=== PATIENT | female | born 1955 | race American Indian/Alaskan Native ===

== ENCOUNTER 2017-12-15 11:17 | Emergency (ER) | payer OTHER ==
[2017-12-15] MEDS ORDERED: TORADOL IV ONE (12:10)
[2017-12-15] MEDS ORDERED: DILAUDID IV ONE ×2 (12:10→15:27)
[2017-12-15] MEDS ORDERED: NACL 0.9% 500 ML 500 ML IV ONE (12:10)
[2017-12-15] MEDS ORDERED: ZOFRAN IV ONE (12:10)
--- NOTE | 2017-12-15 12:12 | Emergency Department Report ---
Blank Doc - Documentation Documentation: Patient is a 62-year-old Female presenting with left-sided flank pain. Patient states this occurred acutely earlier this morning. Patient states pain is 8 out of 10 in severity. Patient has some mild nausea no vomiting. The patient has no history of pain of this caliber. Patient be moved to a treatment room to cliff chemistries CBC and urinalysis and the patient will also undergo a CT abdomen and pelvis without contrast to rule out obstructive uropathy. Ck
[2017-12-15 12:30] LABS: Basophils % (Auto) 0.7 % (0.0-1.8); Eosinophils # (Auto) 0.1 K/mm3 (0.0-0.4); Eosinophils % (Auto) 2.3 % (0.0-4.3); Hematocrit 43.9 % (30.3-42.9); Hemoglobin 14.8 gm/dl (10.1-14.3); Lymphocytes # (Auto) 0.7 K/mm3 (1.2-5.4); Mean Corpuscular HGB Conc 34 % (30-34); Mean Corpuscular Hemoglobin 29 pg (28-32); Mean Corpuscular Volume 85 fl (79-97); Monocytes # (Auto) 0.6 K/mm3 (0.0-0.8); Monocytes % (Auto) 10.9 % (0.0-7.3); Red Blood Count 5.16 M/mm3 (3.65-5.03); Red Cell Distribution Width 13.4 % (13.2-15.2)
[2017-12-15 12:34] LABS: Platelet Count 154 K/mm3 (140-440)
[2017-12-15 13:09] LABS: BUN/Creatinine Ratio 18; Blood Urea Nitrogen 14 mg/dL (7-17); Calcium 9.5 mg/dL (8.4-10.2); Hemolysis Index 16
[2017-12-15 13:25] LABS: Bacteria,Urine 1+ /HPF (Negative); Bilirubin,Urine NEG (Negative); Blood,Urine LG (Negative); Color,Urine Yellow (Yellow); Mucus,Urine FEW /HPF; Protein,Urine <15 mg/dL mg/dL (Negative); RBC,Urine > 182.0 /HPF (0.0-6.0); Urobilinogen,Urine < 2.0 mg/dL (<2.0)
--- NOTE | 2017-12-15 15:05 | Cat Scan Report ---
FINAL REPORT EXAM: CT ABDOMEN PELVIS WO CON HISTORY: L flank pain TECHNIQUE: CT examination of the ABDOMEN without IV contrast CT examination of the PELVIS without IV contrast PRIORS: None. FINDINGS: Linear scar versus atelectasis in both lung bases. Nonspecific slight consolidation in right lung base along the diaphragm posteriorly is associated with air bronchograms. This may be scar, atelectasis, or small region of pneumonitis. Degenerative change in the regional skeleton. No evidence of acute fracture. Normal noncontrast appearance of the liver, gallbladder, adrenals, pancreas, and spleen. Normal caliber abdominal aorta with slight calcified atherosclerotic plaque. Normal caliber IVC. Normal-appearing right kidney and visible right ureter. Asymmetrically larger left kidney may be from edema or inflammation. Slight perinephric fat stranding on the left. Moderate left hydronephrosis. Nonobstructing 3 mm left renal calculus. 5 x 7 mm calculus the in the left UPJ. Sagittal dimension is 8.6 mm. Normal visible left ureter distal to this. Slight fat stranding adjacent to the left renal pelvis. Small fat containing umbilical hernia. No retroperitoneal adenopathy. No evidence of mesenteric mass. Normal-appearing stomach and duodenum. No small bowel distention in the abdomen and pelvis. No pelvic free fluid. Normal-appearing urinary bladder, rectum, uterus, and adnexa. Normal-appearing sigmoid colon. No gross ascites, free air, or colonic distention. Normal-appearing cecum, terminal ileum, and appendix. IMPRESSION: 5 x 7 x 8.6 mm left UPJ calculus with moderate proximal left hydronephrosis. Nonspecific fat stranding adjacent to the left renal pelvis and left kidney may be postobstructive edema. Differential includes pyelonephritis 3 mm nonobstructing left renal calculus Nonspecific slight consolidation in the right lung base along the diaphragm with air bronchograms may be scar, atelectasis, or small region of pneumonitis Bibasilar linear scar versus atelectasis Small fat containing umbilical hernia
--- NOTE | 2017-12-15 15:22 | Emergency Department Report ---
ED Abdominal Pain HPI - General Chief Complaint: Abdominal Pain Stated Complaint: LEFT FLANK PAIN Time Seen by Provider: 12/15/17 12:06 Source: patient Mode of arrival: Ambulatory Limitations: No Limitations - History of Present Illness Initial Comments: Patient is a 62-year-old Female presenting with left-sided flank pain. Patient states this occurred acutely earlier this morning. Patient states pain is 8 out of 10 in severity. Patient has some mild nausea no vomiting. The patient has no history of pain of this caliber. MD Complaint: flank pain Location: LLQ Severity: severe Severity scale (0 -10): 9 Consistency: constant Worsens With: nothing Associated Symptoms: nausea. denies: vomiting, diarrhea, fever, chills, constipation, dysuria, hematemesis, hematochezia, melena, hematuria, anorexia, syncope - Related Data Previous Rx's Medication Instructions Recorded Last Taken Type Ibuprofen [Motrin] 800 mg PO Q8HR PRN #20 tablet 12/15/17 Unknown Rx Ondansetron [Zofran Odt] 4 mg PO Q8HR PRN #10 tab.rapdis 12/15/17 Unknown Rx Oxycodone HCl/Acetaminophen 1 each PO Q6HR PRN #15 tablet 12/15/17 Unknown Rx [Percocet 7.5/325 mg] Tamsulosin HCl [Flomax] 0.4 mg PO DAILY #7 cap.er.24h 12/15/17 Unknown Rx Allergies Allergy/AdvReac Type Severity Reaction Status Date / Time No Known Allergies Allergy Unverified 12/15/17 11:21 ED Review of Systems ROS: Stated complaint: LEFT FLANK PAIN Other details as noted in HPI Comment: All other systems reviewed and negative ED Past Medical Hx - Past Medical History Previous Medical History?: No - Surgical History Past Surgical History?: Yes Additional Surgical History: Right rotator cuff; right knee replace - Social History Smoking Status: Never Smoker Substance Use Type: None - Medications Home Medications: Home Medications Medication Instructions Recorded Confirmed Last Taken Type Ibuprofen [Motrin] 800 mg PO Q8HR PRN #20 tablet 12/15/17 Unknown Rx Ondansetron [Zofran Odt] 4 mg PO Q8HR PRN #10 tab.rapdis 12/15/17 Unknown Rx Oxycodone HCl/Acetaminophen 1 each PO Q6HR PRN #15 tablet 12/15/17 Unknown Rx [Percocet 7.5/325 mg] Tamsulosin HCl [Flomax] 0.4 mg PO DAILY #7 cap.er.24h 12/15/17 Unknown Rx ED Physical Exam - General Limitations: No Limitations General appearance: alert, in distress - Head Head exam: Present: atraumatic, normocephalic - Eye Eye exam: Present: normal appearance - ENT ENT exam: Present: mucous membranes moist - Neck Neck exam: Present: normal inspection - Respiratory Respiratory exam: Present: normal lung sounds bilaterally. Absent: respiratory distress, wheezes, rales, rhonchi - Cardiovascular Cardiovascular Exam: Present: regular rate, normal rhythm. Absent: systolic murmur, diastolic murmur, rubs, gallop - GI/Abdominal GI/Abdominal exam: Present: soft, normal bowel sounds. Absent: distended, tenderness, guarding, rebound - Extremities Exam Extremities exam: Present: normal inspection - Back Exam Back exam: Present: normal inspection, CVA tenderness (L) - Neurological Exam Neurological exam: Present: alert, oriented X3 - Psychiatric Psychiatric exam: Present: normal affect, normal mood - Skin Skin exam: Present: warm, dry, intact, normal color. Absent: rash ED Course Vital Signs 12/15/17 11:21 Temperature 98.2 F Pulse Rate 79 Respiratory 20 Rate Blood Pressure 180/90 O2 Sat by Pulse 97 Oximetry ED Medical Decision Making - Lab Data Result diagrams: 12/15/17 12:17 12/15/17 12:17 Lab Results 12/15/17 12/15/17 12/15/17 Range/Units 12:17 12:17 12:27 WBC 5.4 (4.5-11.0) K/mm3 RBC 5.16 H (3.65-5.03) M/mm3 Hgb 14.8 H (10.1-14.3) gm/dl Hct 43.9 H (30.3-42.9) % MCV 85 (79-97) fl MCH 29 (28-32) pg MCHC 34 (30-34) % RDW 13.4 (13.2-15.2) % Plt Count 154 (140-440) K/mm3 Lymph % (Auto) 13.0 L (13.4-35.0) % Edwards % (Auto) 10.9 H (0.0-7.3) % Eos % (Auto) 2.3 (0.0-4.3) % Baso % (Auto) 0.7 (0.0-1.8) % Lymph # 0.7 L (1.2-5.4) K/mm3 Edwards # 0.6 (0.0-0.8) K/mm3 Eos # 0.1 (0.0-0.4) K/mm3 Baso # 0.0 (0.0-0.1) K/mm3 Seg Neutrophils % 73.1 H (40.0-70.0) % Seg Neutrophils # 3.9 (1.8-7.7) K/mm3 Sodium 138 (137-145) mmol/L Potassium 4.3 (3.6-5.0) mmol/L Chloride 101.5 (98-107) mmol/L Carbon Dioxide 28 (22-30) mmol/L Anion Gap 13 mmol/L BUN 14 (7-17) mg/dL Creatinine 0.8 (0.7-1.2) mg/dL Estimated GFR > 60 ml/min BUN/Creatinine Ratio 18 % Glucose 89 (65-100) mg/dL Calcium 9.5 (8.4-10.2) mg/dL Urine Color Yellow (Yellow) Urine Turbidity Clear (Clear) Urine pH 7.0 (5.0-7.0) Ur Specific Bath 1.011 (1.003-1.030) Urine Protein <15 mg/dl (Negative) mg/dL Urine Glucose (UA) Neg (Negative) mg/dL Urine Ketones Neg (Negative) mg/dL Urine Blood Lg (Negative) Urine Nitrite Neg (Negative) Urine Bilirubin Neg (Negative) Urine Urobilinogen < 2.0 (<2.0) mg/dL Ur Leukocyte Esterase Neg (Negative) Urine WBC (Auto) 12.0 H (0.0-6.0) /HPF Urine RBC (Auto) > 182.0 (0.0-6.0) /HPF U Epithel Cells (Auto) 3.0 (0-13.0) /HPF Urine Bacteria (Auto) 1+ (Negative) /HPF Urine Mucus Few /HPF - Radiology Data Radiology results: image reviewed interpreted by me: He has a left obstructive kidney stone at the U P.J. that is approximately 6 mm at its largest width. - Medical Decision Making His pain was improved with Toradol and Dilaudid. Patient does have a relatively large stone she's never had a kidney stone in the past and give her opportunity to see if she can pass the stone. Patient kidney function is within normal limits. Patient is started on Percocet and will be given Zofran and Cipro and Flomax Critical care attestation.: If time is entered above; I have spent that time in minutes in the direct care of this critically ill patient, excluding procedure time. 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
[2017-12-15 15:59] VITALS: BP 170/99
== END 2017-12-15 15:58 | disposition home or self-care (01) ==
LOC: ED 11:17
DX: N13.30 Unspecified hydronephrosis (principal)
CPT/HCPCS: 36415; 74176; 80048; 81001; 85025; 96374; 96375; 96376; 99284; J1170; J1885; J2405; J7040